=== PATIENT | female | born 1935 | race Caucasian/White ===

== ENCOUNTER 2019-10-04 10:00 | Emergency (ER) | payer OTHER, MEDICARE ==
--- NOTE | 2019-10-04 11:44 | ER ---
Nurse's Notes [facility] Name: Sophia Zamorano Age: 84 yrs Sex: Female : 1935 Arrival Date: 10/04/2019 Time: 10:02 Bed 2 Private MD: Diagnosis: Epistaxis Presentation: 10/04 10:15 Presenting complaint: Nosebleed x 2 hrs. Denies injury/pain. Transition of care: hb patient was not received from another setting of care. Onset of symptoms was October 04, 2019. Risk Assessment: Do you want to hurt yourself or someone else? Patient reports no desire to harm self or others. Initial Sepsis Screen: Does the patient meet any 2 criteria? No. Patient's initial sepsis screen is negative. Does the patient have a suspected source of infection? No. Patient's initial sepsis screen is negative. Care prior to arrival: None. 10:15 Method Of Arrival: Ambulatory hb 10:15 Method Of Arrival: Ambulatory 10:15 Acuity: CAT 3 hb Historical: - Allergies: 10:16 No Known Allergies; hb - Home Meds: 10:16 Xarelto oral oral [Active]; hb - PMHx: 10:16 Atrial Fib; hb - PSHx: 10:16 Appendectomy; Tonsillectomy; hb - Immunization history:: Adult Immunizations up to date. - Social history:: Smoking status: Patient/guardian denies using tobacco. - Ebola Screening: : No symptoms or risks identified at this time. Screenin:17 Abuse screen: Denies threats or abuse. Denies injuries from another. Nutritional hb screening: No deficits noted. Tuberculosis screening: No symptoms or risk factors identified. Fall Risk None identified. Assessment: 10:15 General: Appears in no apparent distress. Behavior is calm, cooperative. Pain: Denies hb pain. Neuro: Level of Consciousness is awake, alert, obeys commands, Oriented to person, place, time, situation. Cardiovascular: Capillary refill < 3 seconds Patient's skin is warm and dry. Respiratory: Airway is patent Respiratory effort is even, unlabored, Respiratory pattern is regular, symmetrical. GI: No signs and/or symptoms were reported involving the gastrointestinal system. : No signs and/or symptoms were reported regarding the genitourinary system. EENT: Reports bleeding from nose. Derm: Skin is pink, warm \T\ dry. Musculoskeletal: No signs and/or symptoms reported regarding the musculoskeletal system. 11:30 Reassessment: Patient appears in no apparent distress at this time. Patient and/or hb family updated on plan of care and expected duration. Pain level reassessed. Patient is alert, oriented x 3, equal unlabored respirations, skin warm/dry/pink. Vital Signs: 10:16 BP 151 / 97; Pulse 78; Resp 16; Temp 97.8; Pulse Ox 100% on R/A; Weight 61.23 kg; hb Height 5 ft. 7 in. (170.18 cm); Pain 0/10; 10:16 Body Mass Index 21.14 (61.23 kg, 170.18 cm) hb ED Course: 10:02 Patient arrived in ED. as 10:12 Walt Paul NP is PHCP. pm1 10:12 Dheeraj Alvarez MD is Attending Physician. pm1 10:16 Triage completed. hb 10:16 Arm band placed on. hb 11:45 Mindy Tracey RN is Primary Nurse. hb Administered Medications: 11:55 Drug: Jose-Synephrine [place] 0.5 % 1 sprays Route: Intranasal; Site: right nare; hb 12:00 Follow up: Response: Medication administered at discharge. hb Outcome: 11:43 Discharge ordered by . pm1 12:03 Patient left the ED. hb Signatures: Shruthi Molina as Walt Paul NP NETWORK SECURITY CONSULTANT pm1 Mindy Tracey RN RN hb
--- NOTE | 2019-10-04 11:44 | EDPHYS ---
Physician Documentation [facility] Name: Sophia Zamorano Age: 84 yrs Sex: Female : 1935 Arrival Date: 10/04/2019 Time: 10:02 Bed 2 Private MD: ED Physician Dheeraj Alvarez HPI: 10/04 11:40 This 84 yrs old Female presents to ER via Ambulatory with complaints of Nose pm1 Bleed. 11:40 The patient presents with a nose bleed, causative factors include: unknown, and the pm1 bleeding is not resolved and continues in ER. Onset: The symptoms/episode began/occurred 2 hour(s) ago. Modifying factors: The symptoms are alleviated by pressure. Associated signs and symptoms: Loss of consciousness: the patient experienced no loss of consciousness, Pertinent negatives: headache, dizziness, chest pain, shortness of breath. Severity of symptoms: in the emergency department the symptoms have improved bleeding to left nostril has stopped but still present to right nostril. Patient with nose bleed for the past two hours. Takes xarelto. Historical: - Allergies: 10:16 No Known Allergies; hb - Home Meds: 10:16 Xarelto oral oral [Active]; hb - PMHx: 10:16 Atrial Fib; hb - PSHx: 10:16 Appendectomy; Tonsillectomy; hb - Immunization history:: Adult Immunizations up to date. - Social history:: Smoking status: Patient/guardian denies using tobacco. - Ebola Screening: : No symptoms or risks identified at this time. ROS: 11:40 Constitutional: Negative for fever, chills, and weight loss, Eyes: Negative for injury, pm1 pain, redness, and discharge. 11:40 Neck: Negative for injury, pain, and swelling, Cardiovascular: Negative for chest pain, palpitations, and edema, Respiratory: Negative for shortness of breath, cough, wheezing, and pleuritic chest pain. 11:40 Back: Negative for injury and pain, MS/Extremity: Negative for injury and deformity, Skin: Negative for injury, rash, and discoloration, Neuro: Negative for headache, weakness, numbness, tingling, and seizure. 11:40 ENT: Positive for nose bleed, Negative for sore throat. 11:40 Abdomen/GI: Negative for abdominal pain, nausea, vomiting, and diarrhea. Exam: 11:40 Constitutional: This is a well developed, well nourished patient who is awake, alert, pm1 and in no acute distress. Head/Face: Normocephalic, atraumatic. 11:40 Neck: Trachea midline, no thyromegaly or masses palpated, and no cervical lymphadenopathy. Supple, full range of motion without nuchal rigidity, or vertebral point tenderness. No Meningismus. Chest/axilla: Normal chest wall appearance and motion. Nontender with no deformity. No lesions are appreciated. Cardiovascular: Regular rate and rhythm with a normal S1 and S2. No gallops, murmurs, or rubs. Normal PMI, no JVD. No pulse deficits. Respiratory: Lungs have equal breath sounds bilaterally, clear to auscultation and percussion. No rales, rhonchi or wheezes noted. No increased work of breathing, no retractions or nasal flaring. Back: No spinal tenderness. No costovertebral tenderness. Full range of motion. Skin: Warm, dry with normal turgor. Normal color with no rashes, no lesions, and no evidence of cellulitis. MS/ Extremity: Pulses equal, no cyanosis. Neurovascular intact. Full, normal range of motion. 11:40 ENT: External ear(s): are unremarkable, Ear canal(s): are normal, TM's: are normal, Nose: bleeding, is seen from the right nare, and is minimal, anterior aspect. a foreign body, is not appreciated, Posterior pharynx: is normal, airway is patent. 11:40 Neuro: Orientation: is normal, Motor: is normal, moves all fours. Vital Signs: 10:16 BP 151 / 97; Pulse 78; Resp 16; Temp 97.8; Pulse Ox 100% on R/A; Weight 61.23 kg; hb Height 5 ft. 7 in. (170.18 cm); Pain 0/10; 10:16 Body Mass Index 21.14 (61.23 kg, 170.18 cm) hb MDM: 10:12 Patient medically screened. pm1 11:42 Data reviewed: vital signs. Data interpreted: Pulse oximetry: on room air is 100 %. pm1 Interpretation: normal. Counseling: I had a detailed discussion with the patient and/or guardian regarding: the historical points, exam findings, and any diagnostic results supporting the discharge/admit diagnosis, to return to the emergency department if symptoms worsen or persist or if there are any questions or concerns that arise at home. Administered Medications: 11:55 Drug: Jose-Synephrine [place] 0.5 % 1 sprays Route: Intranasal; Site: right nare; hb 12:00 Follow up: Response: Medication administered at discharge. Disposition: 14:11 Co-signature as Attending Physician, Dheeraj Alvarez MD. rn Disposition: 10/04/19 11:43 Discharged to Home. Impression: Epistaxis. - Condition is Stable. - Discharge Instructions: Nosebleed, Adult. - Medication Reconciliation Form, Thank You Letter, Antibiotic Education, Prescription Opioid Use form. - Follow up: Emergency Department; When: As needed; Reason: Worsening of condition. Follow up: Private Physician; When: As needed; Reason: Recheck today's complaints, Continuance of care, Re-evaluation by your physician. - Problem is new. - Symptoms have improved. Signatures: Dheeraj Alvarez MD MD rn Marinas, Patrick, NP WIND POWER PROJECT MANAGER pm1 Mindy Tracey RN RN Corrections: (The following items were deleted from the chart) 12:03 11:43 10/04/2019 11:43 Discharged to Home. Impression: Epistaxis. Condition is Stable. hb Forms are Medication Reconciliation Form, Thank You Letter, Antibiotic Education, Prescription Opioid Use. Follow up: Emergency Department; When: As needed; Reason: Worsening of condition. Follow up: Private Physician; When: As needed; Reason: Recheck today's complaints, Continuance of care, Re-evaluation by your physician. Problem is new. Symptoms have improved. pm1
[2019-10-04] MEDS ORDERED: PHENYLEPHRINE 0.5% NOSE 15ML NAS ONE (11:45)
[2019-10-04 12:10] VITALS: BP 151/97; TEMP 97.8; O2SAT 100
== END 2019-10-04 12:03 | disposition home or self-care (01) ==
LOC: ER 10:00
DX: R04.0 Epistaxis (principal); I48.91 Unspecified atrial fibrillation
CPT/HCPCS: 99282

== ENCOUNTER 2019-11-25 01:24 | Emergency (ER) | payer OTHER, MEDICARE ==
[2019-11-25] MEDS ORDERED: OXYMETAZOLINE HCL 0.05% 15ML NAS ONE (02:01)
[2019-11-25] MEDS ORDERED: NA CHLORIDE 0.9% 1,000 ML ONE (02:22)
[2019-11-25] MEDS ORDERED: ONDANSETRON 4 MG/2 ML VIAL ONE (02:22)
[2019-11-25 02:56] LABS: Absolute Lymphocytes (CBC) 2.4 K/uL (0.7-4.9); Basophils % 0.2 % (0-1.3); Hematocrit 40.3 % (36.0-45.0); Lymphocytes % 19.8 % (15.3-44.8); MPV 8.4 fL (7.6-11.3); RBC Red Blood Cell Count 4.37 M/uL (3.86-4.86)
[2019-11-25 02:59] LABS: Protime INR 1.56
[2019-11-25 03:08] LABS: ALT/SGPT 29 U/L (12-78); AST/SGOT 20 U/L (15-37); Albumin 3.1 g/dL (3.4-5.0); Alkaline Phosphatase 70 U/L (45-117); BUN Blood Urea Nitrogen 28 mg/dL (7-18); Bicarbonate 31 mmol/L (21-32); Bilirubin Total 0.6 mg/dL (0.2-1.0); Glucose Level 134 mg/dL (74-106); Potassium 4.1 mmol/L (3.5-5.1); Protein, Total 6.2 g/dL (6.4-8.2); Sodium Level 135 mmol/L (136-145); Troponin (Emerg Dept Use Only) < 0.02 ng/mL (0.0-0.045)
--- NOTE | 2019-11-25 05:54 | ER ---
Nurse's Notes [facility] Name: Sophia Zamorano Age: 84 yrs Sex: Female : 1935 Arrival Date: 11/25/2019 Time: :30 Bed 16 Private MD: Diagnosis: Epistaxis Presentation: 11/25 02:09 Presenting complaint: Patient states: My nose started bleeding at 9pm yesterday, I jb4 tried to lay down after putting a clamp on my nose. The bleeding did not stop and I began to feel nauseaus. 02:09 Transition of care: patient was not received from another setting of care. Onset of jb4 symptoms was November 25, 2019. Risk Assessment: Do you want to hurt yourself or someone else? Patient reports no desire to harm self or others. Initial Sepsis Screen: Does the patient meet any 2 criteria? Systolic BP < 90 mmHg. Yes Does the patient have a suspected source of infection? No. Patient's initial sepsis screen is negative. Care prior to arrival: None. 02:09 Method Of Arrival: Ambulatory jb4 02:09 Acuity: CAT 2 jb4 Historical: - Allergies: 02:09 Azithromycin; jb4 - Home Meds: 02:09 Xarelto 20 mg oral tab [Active]; propranolol 20 mg Oral tab 2 tabs 2 times per day jb4 [Active]; ibandronate 150 mg oral tab 1 tab once moly [Active]; Claritin 10 mg Oral tab 1 tab once daily [Active]; multivitamin oral oral [Active]; folic acid 1 mg Oral tab 1 tab once daily [Active]; claude red 350mg daily [Active]; - PMHx: 02:09 Atrial Fib; jb4 - PSHx: 02:09 Tonsillectomy; Appendectomy; jb4 - Immunization history:: Adult Immunizations up to date. - Coronavirus screen:: The patient has NOT traveled to [place], [place], or [place] in the past 14 days. Proceed with normal triage process as indicated. The patient has NOT had contact with known/suspected case of Coronavirus? Proceed with normal triage procedures. - Social history:: Smoking status: Patient denies any tobacco usage or history of. Patient/guardian denies using alcohol, street drugs. - Ebola Screening: : No symptoms or risks identified at this time. Screenin:09 Abuse screen: Denies threats or abuse. Nutritional screening: No deficits noted. jb4 Tuberculosis screening: No symptoms or risk factors identified. Fall Risk IV access (20 points). Gait- Weak (10 pts.). Total Singer Fall Scale indicates Low Risk Score (25-44 pts). Fall prevention measures have been instituted. Side Rails Up X 2 Placed close to Nursing Station Frequent Obs/Assesments occuring Family Present and informed to notify staff if they need to leave bedside As available Patient and Family Educated on Fall Prevention Program and strategies. Assessment: 02:09 General: Appears in no apparent distress. uncomfortable, Behavior is calm, cooperative, jb4 appropriate for age. Pain: Denies pain. Neuro: Level of Consciousness is awake, alert, obeys commands, Oriented to person, place, time, situation. Cardiovascular: Patient's skin is warm and dry. Respiratory: Airway is patent Respiratory effort is even, unlabored, Respiratory pattern is regular, symmetrical. GI: Reports nausea. : No signs and/or symptoms were reported regarding the genitourinary system. EENT: Reports nasal discharge that is bloody since 9 pm. Derm: Skin is intact, Skin is clammy, Skin is pale, Skin temperature is cool. Musculoskeletal: Circulation, motion, and sensation intact. Range of motion: intact in all extremities. 02:10 Reassessment: Provider notified of b/p see [facility] for orders. jb4 03:00 Reassessment: Patient appears in no apparent distress at this time. Patient and/or jb4 family updated on plan of care and expected duration. Pain level reassessed. Patient is alert, oriented x 3, equal unlabored respirations, skin warm/dry/pink. PT is resting comfortably in bed, verbalizes feeling better, is no longer pale, cool and clammy. IS pink warm and dry. Denies further nausea, and dizziness. Patient states feeling better. Patient states symptoms have improved. 04:30 Reassessment: Patient appears in no apparent distress at this time. No changes from previously documented assessment. Patient and/or family updated on plan of care and expected duration. Pain level reassessed. Patient is alert, oriented x 3, equal unlabored respirations, skin warm/dry/pink. 06:05 Reassessment: Patient appears in no apparent distress at this time. No changes from previously documented assessment. Patient and/or family updated on plan of care and expected duration. Pain level reassessed. Patient is alert, oriented x 3, equal unlabored respirations, skin warm/dry/pink. Patient states feeling better. Patient states symptoms have improved. Vital Signs: 02:09 BP 69 / 59; Pulse 73; Resp 16; Temp 97.3; Pulse Ox 99% ; Weight 63.5 kg; Height 5 ft. 7 jb4 in. (170.18 cm); 02:30 BP 92 / 79; Pulse 71; Resp 18; Pulse Ox 100% on R/A; jb4 02:45 BP 119 / 77; Pulse 65; Resp 16; Pulse Ox 100% on R/A; jb4 05:12 BP 133 / 74; Pulse 68; Resp 16; Pulse Ox 99% ; ds4 02:09 Body Mass Index 21.93 (63.50 kg, 170.18 cm) jb4 ED Course: 01:30 Patient arrived in ED. jg7 01:43 Esteban Mock MD is Attending Physician. tw4 02:09 Arm band placed on right wrist. jb4 02:09 Patient has correct armband on for positive identification. Bed in low position. Call jb4 light in reach. Side rails up X 1. Pulse ox on. NIBP on. 02:15 Wallace Hernandez, JUSTINE is Primary Nurse. jb4 02:15 Warm blanket given. Pillow given. jb4 02:20 Inserted saline lock: 20 gauge in left antecubital area, using aseptic technique. Blood ds4 collected. 02:35 Triage completed. jb4 05:40 Janina Miranda MD is Referral Physician. tw4 06:05 No provider procedures requiring assistance completed. IV discontinued, intact, bleeding controlled, No redness/swelling at site. Administered Medications: 02:30 Drug: NS 0.9% 500 ml Route: IV; Rate: bolus; Site: right antecubital; jb4 02:45 Follow up: BP 119 / 77; Pulse 65 bpm; Resp 16 bpm; Pulse Ox 100% RA; Response: No jb4 adverse reaction; Blood pressure is elevated; IV Status: Completed infusion 02:32 Drug: Zofran 4 mg Route: IVP; Site: right antecubital; jb4 02:59 Follow up: Response: No adverse reaction; Nausea is decreased jb4 02:59 Drug: NS 0.9% 1000 ml Route: IV; Rate: 75 ml/hr; Site: left antecubital; [facility] 06:06 Follow up: Response: No adverse reaction; IV Status: Completed infusion Outcome: 05:39 Discharge ordered by . 4 06:05 Discharged to home ambulatory, with family. 06:05 Condition: stable 06:05 Discharge instructions given to patient, family, Instructed on discharge instructions, follow up and referral plans. medication usage, POC Demonstrated understanding of instructions, follow-up care, medications, POC Prescriptions given X 1. 06:06 Patient left the ED. Signatures: Nelson Wilder 4 Wallace Hernandez, RN RN jb4 Luci Chiu Esteban Mock MD MD tw4 Roxi Sanchez jg7 Corrections: (The following items were deleted from the chart) 02:40 02:19 BP 69 / 59; Pulse 73bpm; Resp 16bpm; Pulse Ox 99%; Temp 97.3F; 63.5 kg; Height 5 jb4 ft. 7 in.; BMI: 21.9;
--- NOTE | 2019-11-25 05:54 | EDPHYS ---
Physician Documentation [facility] Name: Sophia Zamorano Age: 84 yrs Sex: Female : 1935 Arrival Date: 11/25/2019 Time: :30 Bed 16 Private MD: ED Physician Esteban Mock HPI: 11/25 03:09 This 84 yrs old Female presents to ER via Ambulatory with complaints of Nose tw4 Bleed, VOMITING BLOOD. 03:09 The patient presents with a nose bleed, that is apparently anterior. Onset: The tw4 symptoms/episode began/occurred 4 hour(s) ago. Modifying factors: The symptoms are alleviated by pressure, the symptoms are aggravated by. Associated signs and symptoms: The patient has no apparent associated signs or symptoms. Severity of symptoms: At their worst the symptoms were moderate. The patient has not experienced similar symptoms in the past. Historical: - Allergies: 02:09 Azithromycin; jb4 - Home Meds: 02:09 Xarelto 20 mg oral tab [Active]; propranolol 20 mg Oral tab 2 tabs 2 times per day jb4 [Active]; ibandronate 150 mg oral tab 1 tab once moly [Active]; Claritin 10 mg Oral tab 1 tab once daily [Active]; multivitamin oral oral [Active]; folic acid 1 mg Oral tab 1 tab once daily [Active]; claude red 350mg daily [Active]; - PMHx: 02:09 Atrial Fib; jb4 - PSHx: 02:09 Tonsillectomy; Appendectomy; jb4 - Immunization history:: Adult Immunizations up to date. - Coronavirus screen:: The patient has NOT traveled to [place], [place], or [place] in the past 14 days. Proceed with normal triage process as indicated. The patient has NOT had contact with known/suspected case of Coronavirus? Proceed with normal triage procedures. - Social history:: Smoking status: Patient denies any tobacco usage or history of. Patient/guardian denies using alcohol, street drugs. - Ebola Screening: : No symptoms or risks identified at this time. ROS: 03:09 Cardiovascular: Negative for chest pain, palpitations, and edema, Respiratory: Negative tw4 for shortness of breath, cough, wheezing, and pleuritic chest pain, Abdomen/GI: Negative for abdominal pain, nausea, vomiting, diarrhea, and constipation, Back: Negative for injury and pain, MS/Extremity: Negative for injury and deformity, Skin: Negative for injury, rash, and discoloration. 03:09 ENT: Positive for nose bleed, Negative for injury or acute deformity. Exam: 03:09 Constitutional: This is a well developed, well nourished patient who is awake, alert, tw4 and in no acute distress. Head/Face: Normocephalic, atraumatic. Chest/axilla: Normal chest wall appearance and motion. Nontender with no deformity. No lesions are appreciated. Cardiovascular: Regular rate and rhythm with a normal S1 and S2. No gallops, murmurs, or rubs. Normal PMI, no JVD. No pulse deficits. 03:09 Back: No spinal tenderness. No costovertebral tenderness. Full range of motion. 03:09 ENT: Nose: clotted blood, in right nare. Vital Signs: 02:09 BP 69 / 59; Pulse 73; Resp 16; Temp 97.3; Pulse Ox 99% ; Weight 63.5 kg; Height 5 ft. 7 jb4 in. (170.18 cm); 02:30 BP 92 / 79; Pulse 71; Resp 18; Pulse Ox 100% on R/A; jb4 02:45 BP 119 / 77; Pulse 65; Resp 16; Pulse Ox 100% on R/A; jb4 05:12 BP 133 / 74; Pulse 68; Resp 16; Pulse Ox 99% ; ds4 02:09 Body Mass Index 21.93 (63.50 kg, 170.18 cm) jb4 Procedures: 06:02 Epistaxis treatment: A moderate amount of bleeding noted from Treated using rhino tw4 rocket, Bleeding stopped. MDM: 01:43 Patient medically screened. tw4 06:02 Differential diagnosis: spontaneous epistaxis. Data reviewed: vital signs, nurses tw4 notes. Data reviewed: lab test result(s), CBC, electrolytes. Data interpreted: Pulse oximetry: Interpretation: normal. Test interpretation: by ED physician or midlevel provider: not applicable. Counseling: I had a detailed discussion with the patient and/or guardian regarding: the historical points, exam findings, and any diagnostic results supporting the discharge/admit diagnosis, lab results. Special discussion: I discussed with the patient/guardian in detail that at this point there is no indication for admission to the hospital. It is understood, however, that if the symptoms persist or worsen the patient needs to return immediately for re-evaluation. 11/25 01:48 Order name: CBC with Diff; Complete Time: 05:39 tw4 11/25 05:39 Interpretation: Normal except: WBC 12.2; NEUT A 8.6. tw4 11/25 01:48 Order name: CMP; Complete Time: 05:39 tw4 11/25 05:39 Interpretation: Normal except: NA 135; GLUC 134; BUN 28; GFR 54. 11/25 01:48 Order name: PT-INR; Complete Time: 05:39 tw4 11/25 05:39 Interpretation: Normal except: PT 18.1. 11/25 01:48 Order name: Ptt, Activated; Complete Time: 05:39 tw4 11/25 05:39 Interpretation: Within normal limits: PTT 30.9. 4 11/25 02:50 Order name: Troponin (emerg Dept Use Only) [facility] 11/25 02:53 Order name: Troponin (Emerg Dept Use Only); Complete Time: 05:39 EDID 11/25 05:39 Interpretation: Within normal limits: TROPED < 0.02. 4 Administered Medications: 02:30 Drug: NS 0.9% 500 ml Route: IV; Rate: bolus; Site: right antecubital; jb4 02:45 Follow up: BP 119 / 77; Pulse 65 bpm; Resp 16 bpm; Pulse Ox 100% RA; Response: No jb4 adverse reaction; Blood pressure is elevated; IV Status: Completed infusion 02:32 Drug: Zofran 4 mg Route: IVP; Site: right antecubital; jb4 02:59 Follow up: Response: No adverse reaction; Nausea is decreased jb4 02:59 Drug: NS 0.9% 1000 ml Route: IV; Rate: 75 ml/hr; Site: left antecubital; jb4 06:06 Follow up: Response: No adverse reaction; IV Status: Completed infusion wh Disposition: 11/25/19 05:39 Discharged to Home. Impression: Epistaxis. - Condition is Stable. - Discharge Instructions: Nosebleed, Adult, Nosebleed, [id number]. - Prescriptions for Cleocin 150 mg Oral Capsule - take 1 capsule by ORAL route every 6 hours for 5 days; 20 capsule. - Medication Reconciliation Form, Thank You Letter, Antibiotic Education, Prescription Opioid Use form. - Follow up: Private Physician; When: Upon discharge from the Emergency Department; Reason: Recheck today's complaints, Continuance of care. Follow up: Janina Miranda MD; When: Upon discharge from the Emergency Department; Reason: If symptoms return, Recheck today's complaints, Continuance of care. - Problem is new. - Symptoms have improved. Signatures: Dispatcher [employer] [facility] Wallace Hernandez, JUSTINE RN jb4 Luci Chiu Esteban Mock MD MD tw4 Corrections: (The following items were deleted from the chart) 05:40 05:39 11/25/2019 05:39 Discharged to Home. Impression: Epistaxis. Condition is Stable. 4 Forms are Medication Reconciliation Form, Thank You Letter, Antibiotic Education, Prescription Opioid Use. Follow up: Private Physician; When: Upon discharge from the Emergency Department; Reason: Recheck today's complaints, Continuance of care. Problem is new. Symptoms have improved. tw4 06:06 05:40 11/25/2019 05:39 Discharged to Home. Impression: Epistaxis. Condition is Stable. Discharge Instructions: Nosebleed, Adult, Nosebleed, [id number]. Prescriptions for Cleocin 150 mg Oral Capsule - take 1 capsule by ORAL route every 6 hours for 5 days; 20 capsule. and Forms are Medication Reconciliation Form, Thank You Letter, Antibiotic Education, Prescription Opioid Use. Follow up: Private Physician; When: Upon discharge from the Emergency Department; Reason: Recheck today's complaints, Continuance of care. Follow up: Janina Miranda; When: Upon discharge from the Emergency Department; Reason: If symptoms return, Recheck today's complaints, Continuance of care. Problem is new. Symptoms have improved. tw4
[2019-11-25 14:02] VITALS: TEMP 97.3
[2019-11-25 14:07] VITALS: BP 133/74; O2SAT 99
== END 2019-11-25 06:06 | disposition home or self-care (01) ==
LOC: ER 01:24
DX: R04.0 Epistaxis (principal); Z88.1 Allergy status to other antibiotic agents; I48.91 Unspecified atrial fibrillation
CPT/HCPCS: 30901; 96361; 85025; 36415; 85610; 85730; 84484; 80053; 96374; 99284; J7030; J2405

== ENCOUNTER 2020-03-07 02:41 | Emergency (ER) | payer OTHER, MEDICARE ==
[2020-03-07] MEDS ORDERED: OXYMETAZOLINE HCL 0.05% 15ML NAS ONE (03:09)
[2020-03-07] MEDS ORDERED: ONDANSETRON 4 MG (ODT) TAB ONE (03:24)
--- NOTE | 2020-03-07 05:54 | EDPHYS ---
Physician Documentation [facility] Name: Sophia Zamorano Age: 85 yrs Sex: Female : 1935 Arrival Date: 03/07/2020 Time: 02:42 Bed 20 Private MD: ED Physician Dheeraj Alvarez HPI: 03/07 03:02 This 85 yrs old Female presents to ER via Unassigned with complaints of Nose rn Bleed. 03:02 The patient presents with a nose bleed. Onset: The symptoms/episode began/occurred 2 rn hour(s) ago. Modifying factors: The symptoms are alleviated by pressure, the symptoms are aggravated by blowing nose. Severity of symptoms: At their worst the symptoms were mild in the emergency department the symptoms are unchanged. The patient has experienced similar episodes in the past. The patient has not recently seen a physician. Reports "3rd time", no trauma, not sick recently, takes xarelto, identical to other times, no hematemesis.. Historical: - Allergies: 03:12 Azithromycin; rv - PMHx: 03:12 Atrial Fib; rv - PSHx: 03:12 Appendectomy; Tonsillectomy; rv - Immunization history:: Adult Immunizations up to date. - Social history:: Smoking status: Patient denies any tobacco usage or history of. - Family history:: not pertinent. - Hospitalizations: : No recent hospitalization is reported. ROS: 03:02 Constitutional: Negative for fever, chills, and weight loss, ENT: + spont nose bleed spring intern: Negative for chest pain, palpitations, and edema, Respiratory: Negative for shortness of breath, cough, wheezing, and pleuritic chest pain, Abdomen/GI: Negative for abdominal pain, nausea, vomiting, diarrhea, and constipation, Neuro: Negative for headache, weakness, numbness, tingling, and seizure. Exam: 03:02 Constitutional: This is a well developed, well nourished patient who is awake, alert, rn smiling, blood present on hands and clothes ENT: Minimal but ongoing right nare bleeding, some blood clots left nare Cardiovascular: No pulse deficits. Respiratory: Speaking full sentences. Skin: Warm, dry Neuro: Awake and alert, GCS 15 Vital Signs: 03:09 BP 162 / 46; Pulse 61; Resp 16; Temp 98.4; Pulse Ox 99% ; Weight 61.23 kg; Height 5 ft. rv 7 in. (170.18 cm); Pain 0/10; 05:32 BP 140 / 100; Pulse 60; Resp 16; Pulse Ox 98% ; ds4 06:00 BP 132 / 88; Pulse 61; Resp 16; Temp 97.2; Pulse Ox 100% on R/A; Pain 0/10; sg 03:09 Body Mass Index 21.14 (61.23 kg, 170.18 cm) rv All Coma Score: 06:00 Eye Response: spontaneous(4). Verbal Response: oriented(5). Motor Response: obeys sg commands(6). Total: 15. Procedures: 05:03 Epistaxis treatment: A small amount of bleeding noted from Treated using Oxymetazoline rn sprays, nasal clamp, rhino rocket, Bleeding decreased. MDM: 02:57 Patient medically screened. rn 03:36 Differential diagnosis: spontaneous epistaxis. ED course: Pt feels like it is slowing rn down but not resolved yet. . 05:02 ED course: Pt began to bleed again, out of right nare, simple pledget applied and she rn soaked through it, replaced with short rhino rocket, and started to bleed to other side. Longer 7.5 cm rhino rocket applied with improved results. Will continue to monitor. . 05:52 Data reviewed: vital signs, nurses notes, and as a result, I will discharge patient. rn Counseling: I had a detailed discussion with the patient and/or guardian regarding: the historical points, exam findings, and any diagnostic results supporting the discharge/admit diagnosis, the need for outpatient follow up, to return to the emergency department if symptoms worsen or persist or if there are any questions or concerns that arise at home. Response to treatment: the patient's symptoms have resolved after treatment, and as a result, I will discharge patient. ED course: Pt improved, ambulatory to bathroom, no longer bleeding, has seen Dr. Miranda before, is going to call today for appt when opens. Return precautions given and understood.. Administered Medications: 03:13 Drug: Afrin Drops (0.05 %) 2 sprays Route: Intranasal; Site: both nares; rv 03:17 Not Given (Other Intervention Used): Jose-Synephrine [place] 0.5 % 2 sprays Intranasal sg once; each nare 03:19 Drug: Zofran (Ondansetron) 4 mg Route: PO; rv Disposition: 03/07/20 05:53 Discharged to Home. Impression: Epistaxis. - Condition is Stable. - Discharge Instructions: Nosebleed, Adult. - Prescriptions for Augmentin 875- 125 mg Oral Tablet - take 1 tablet by ORAL route every 12 hours for 10 days; 20 tablet. - Medication Reconciliation Form, Thank You Letter, Antibiotic Education, Prescription Opioid Use form. - Follow up: Janina Miranda MD; When: Today; Reason: Recheck today's complaints, Re-evaluation by your physician. - Problem is new. - Symptoms are resolved. Signatures: Mart Limon RN RN sg Dheeraj Alvarez MD MD rn Vicente, Ronaldo, RN RN rv Corrections: (The following items were deleted from the chart) 06:02 05:53 03/07/2020 05:53 Discharged to Home. Impression: Epistaxis. Condition is Stable. sg Forms are Medication Reconciliation Form, Thank You Letter, Antibiotic Education, Prescription Opioid Use. Follow up: Janina Miranda; When: Today; Reason: Recheck today's complaints, Re-evaluation by your physician. Problem is new. Symptoms are resolved. rn
--- NOTE | 2020-03-07 05:54 | ER ---
Nurse's Notes [facility] Name: Sophia Zamorano Age: 85 yrs Sex: Female : 1935 Arrival Date: 03/07/2020 Time: 02:42 Bed 20 Private MD: Diagnosis: Epistaxis Presentation: 03/07 03:09 Chief complaint: Patient states: got up from bed to use the bathroom when my nose rv started bleeding. denies any injury. Coronavirus screen: Proceed with normal triage. Ebola Screen: No symptoms or risks identified at this time. Initial Sepsis Screen: Does the patient meet any 2 criteria? No. Patient's initial sepsis screen is negative. Does the patient have a suspected source of infection? No. Patient's initial sepsis screen is negative. Risk Assessment: Do you want to hurt yourself or someone else? Patient reports no desire to harm self or others. Onset of symptoms was March 07, 2020 at 02:00. 03:09 Method Of Arrival: Ambulatory rv 03:09 Acuity: CAT 4 rv Triage Assessment: 03:12 General: Appears uncomfortable, Behavior is calm, cooperative. Pain: Denies pain. EENT: rv Nares with bleeding noted bilaterally. Neuro: Level of Consciousness is awake, alert, obeys commands, Oriented to person, place, time, situation. Cardiovascular: Patient's skin is warm and dry. Respiratory: Airway is patent Respiratory effort is even, unlabored, Breath sounds are clear bilaterally. Derm: Skin is intact. Historical: - Allergies: 03:12 Azithromycin; rv - PMHx: 03:12 Atrial Fib; rv - PSHx: 03:12 Appendectomy; Tonsillectomy; rv - Immunization history:: Adult Immunizations up to date. - Social history:: Smoking status: Patient denies any tobacco usage or history of. - Family history:: not pertinent. - Hospitalizations: : No recent hospitalization is reported. Screenin:14 Abuse screen: Denies threats or abuse. Denies injuries from another. Nutritional rv screening: No deficits noted. Tuberculosis screening: No symptoms or risk factors identified. Fall Risk None identified. Assessment: 04:15 Reassessment: Patient appears in no apparent distress at this time. Patient and/or sg family updated on plan of care and expected duration. Pain level reassessed. Patient is alert, oriented x 3, equal unlabored respirations, skin warm/dry/pink. Patient states symptoms have not improved. 05:00 Reassessment: Patient appears in no apparent distress at this time. bleeding continues sg at this time, at bedside for insertion of longer Rhino Rocket into nare, pt tolerated well, awaiting new orders at this time. Vital Signs: 03:09 BP 162 / 46; Pulse 61; Resp 16; Temp 98.4; Pulse Ox 99% ; Weight 61.23 kg; Height 5 ft. rv 7 in. (170.18 cm); Pain 0/10; 05:32 BP 140 / 100; Pulse 60; Resp 16; Pulse Ox 98% ; ds4 06:00 BP 132 / 88; Pulse 61; Resp 16; Temp 97.2; Pulse Ox 100% on R/A; Pain 0/10; sg 03:09 Body Mass Index 21.14 (61.23 kg, 170.18 cm) rv All Coma Score: 06:00 Eye Response: spontaneous(4). Verbal Response: oriented(5). Motor Response: obeys sg commands(6). Total: 15. ED Course: 02:42 Patient arrived in ED. ag3 02:44 Walter Castaneda, JUSTINE is Primary Nurse. rv 02:50 Dheeraj Alvarez MD is Attending Physician. sg 03:11 Triage completed. rv 03:12 Arm band placed on right wrist. Patient placed in the treatment room, on a stretcher, rv on pulse oximetry, Patient notified of wait time Emesis basin given. 03:14 Patient has correct armband on for positive identification. Pulse ox on. NIBP on. rv 04:25 Primary Nurse role handed off by Walter Castaneda, JUSTINE sg 04:25 Mart Limon, RN is Primary Nurse. sg 05:53 Janina Miranda MD is Referral Physician. rn 06:00 No provider procedures requiring assistance completed. Patient did not have IV access sg during this emergency room visit. Administered Medications: 03:13 Drug: Afrin Drops (0.05 %) 2 sprays Route: Intranasal; Site: both nares; rv 03:17 Not Given (Other Intervention Used): Jose-Synephrine [place] 0.5 % 2 sprays Intranasal sg once; each nare 03:19 Drug: Zofran (Ondansetron) 4 mg Route: PO; rv Outcome: 05:53 Discharge ordered by . justine 06:00 Discharged to home via wheelchair, with family. sg 06:00 Condition: good 06:00 Discharge instructions given to patient, family, Instructed on discharge instructions, follow up and referral plans. medication usage, safety practices, Demonstrated understanding of instructions, follow-up care, medications, Prescriptions given X 1. 06:02 Patient left the ED. sg Signatures: Mart Limon RN RN Dheeraj Meade MD MD rn Swanson, Donovan ds4 Walter Castaneda RN RN rv Caroline Sy ag3
[2020-03-07 06:13] VITALS: TEMP 98.4
[2020-03-07 06:14] VITALS: BP 140/100; O2SAT 98
== END 2020-03-07 06:02 | disposition home or self-care (01) ==
LOC: ER 02:41
PROC: 2Y41X5Z Packing of Nasal Region using Packing Material (ICD-10-PCS; principal; 2020-03-07)
DX: R04.0 Epistaxis (principal); I48.91 Unspecified atrial fibrillation; Z79.01 Long term (current) use of anticoagulants; Z88.1 Allergy status to other antibiotic agents
CPT/HCPCS: 30901; 99283